=== PATIENT | male | born 1975 | race African-American/Black ===

== ENCOUNTER 2019-11-08 21:15 | Emergency (ER) | payer MEDICAID ==
[~2019-11-08] VITALS: Ht 182.9 cm; Wt 113.4 kg
[2019-11-08 21:19] VITALS: BP 148/90
--- NOTE | 2019-11-08 21:21 | NUR ---
PT AMBULATED TO LOBBY.
--- NOTE | 2019-11-08 23:25 | NUR ---
44 Y/O MALE PRESNTS TO ED WITH C/O METH USE X2 HRS PRIOR TO CALLING 911. PT ARRIVED BY AMBULANCE. HE IS ALERT TO NAME, PLACE, TIME, AND EVENT. NO PAIN OR OTHER COMPLAINTS. HE REQUESTED TO BE SEEN BY A PHYSICIAN. HIS HR IS ELEVATED AT 120. PT HAS AUDITORY AND VISUAL HALLUCINATIONS WITH A HX OF SCHIZORPHRENIA. HE USED TO TAKE RESPIRADOL BUT DOES NOT CURRENTLY AND DOES NOT REMEMBER THE LAST TIME HE TOOK MEDS. PT PUT IN BED FOR COMFORT WITH X2 SIDE RAILS UP. ER DM AWARE. CONTINUE TO MONITOR.
--- NOTE | 2019-11-08 23:25 | NUR ---
PT AMBULATED TO BED 10 WITH SECURITY
[2019-11-08] MEDS ORDERED: LORazepam 2 MG/ML VIAL IM ONE (23:45)
--- NOTE | 2019-11-09 | NUR ---
MEDICATED WITH 2 MG IM ATIVAN FOR AGITATION AND ABNORMAL BEHAVIOR RELATED TO METHAMPHETAMINE USE. WILL REASSESS IN 30 MINS.
--- NOTE | 2019-11-09 00:30 | NUR ---
RESTING WITH EYES CLOSED, DEEP RESPIRATIONS AND LOUD SNORING HEARD. VSS. WILL CONTINUE TO MONITOR.
--- NOTE | 2019-11-09 02:29 | NUR ---
LOUD SNORING HEARD FROM ROOM. PT ROLLING AROUND ON BED, APPEARS RESTLESS WHILE TRYING TO SLEEP. AROUSABLE TO VERBAL STIMULI. WILL CONTINUE TO MONITOR.
--- NOTE | 2019-11-09 04:21 | NUR ---
RESTING QUIETLY IN BED WITH EYES CLOSED. AROUSABLE TO VERBAL STIMULI. DENIES PAIN AT THIS TIME. WILL CONTINUE TO MONITOR.
[2019-11-09 05:17] VITALS: BP 137/88
--- NOTE | 2019-11-09 05:17 | NUR ---
Patient discharged with v/s stable. Written and verbal after care instructions given and explained. Patient verbalized understanding. Ambulatory with steady gait. All questions addressed prior to discharge. Advised to follow up with PMD. Addendum: 11/09/19 at 0530 by [facility] PROVIDED.
== END 2019-11-09 05:17 | disposition home or self-care (01) ==
LOC: MED 21:15
DX: F15.129 Other stimulant abuse with intoxication, unspecified (principal); Z59.0 Homelessness
CPT/HCPCS: 96372; 99283; J2060

== ENCOUNTER 2019-11-11 10:32 | Emergency (ER) | payer MEDICAID ==
[~2019-11-11] VITALS: Ht 177.8 cm; Wt 111.1 kg
[2019-11-11 10:37] VITALS: BP 127/54
--- NOTE | 2019-11-11 12:03 | NUR ---
PT IN WHEELCHAIR FROM RADIOLOGY TO ER BED 06
--- NOTE | 2019-11-11 12:06 | NUR ---
PATIENT PRESENTS TO ED WITH c/o heavy sensation to perinum area today, denies shaving or injury to area recently, DENIES ANY URINARY PROBLEMS . PATIENT STATES PAIN OF 2/10 AT THIS TIME; VSS; PATIENT POSITIONED FOR COMFORT; HOB ELEVATED; BEDRAILS UP X2; BED DOWN. ER MD MADE AWARE OF PT STATUS.
--- NOTE | 2019-11-11 12:18 | NUR ---
Patient being evaluated by DR. MCGHEE at bedside.
[2019-11-11 14:05] VITALS: BP 127/54
--- NOTE | 2019-11-11 14:05 | NUR ---
Patient discharged to home. Written and verbal after care instructions given and explained. Rx of motrin given. Patient educated on indication of medication including possible reaction and side effects. All questions addressed prior to discharge. ID band removed. Patient advised to follow up with PMD. PATIENT STATED HE IS LIVING IN A CARE HOME, NO NEED FOOD AT THS TIME.
== END 2019-11-11 14:05 | disposition home or self-care (01) ==
LOC: MED 10:32
DX: R22.40 Localized swelling, mass and lump, unspecified lower limb (principal); I50.9 Heart failure, unspecified
CPT/HCPCS: 76870; 99284; Q0092